=== PATIENT | male | born 1955 | race Caucasian/White ===

== ENCOUNTER 2024-03-28 18:48 | Emergency (ER) | payer OTHER, BC, SELFPAY ==
[2024-03-28] VITALS (10 sets, daily range): BP systolic 138–210; BP diastolic 81–100; PULSE 63; RESP 16; TEMP 36.5; O2SAT 96–99
--- NOTE | 2024-03-28 18:50 | ED.GENADULT ---
HPI - General Adult General Chief complaint: Unspecified Stated complaint: hypertension Time Seen by Provider: 03/28/24 18:50 Source: patient Mode of arrival: ambulatory Limitations: no limitations History of Present Illness HPI narrative: Patient is a 69-year-old male with hypertension. Patient was at the [facility] today and found to have elevated blood pressure without symptoms. Further he has been having elevated pressure at all his doctor appointments and they recently increased his losartan. He was sent to the hospital for further blood pressure control. Onset (ago): day(s) (1) Radiation: non-radiation Severity scale (1-10): 1 ( 0/10) Relieving factors: none Exacerbating factors: none Associated symptoms: denies other symptoms Treatments prior to arrival: none Related Data Home Medications Medication Instructions Recorded Confirmed Adult Aspirin EC Low Strength 81 mg PO DAILY 03/28/24 03/28/24 levothyroxine 50 mcg PO DAILY 03/28/24 03/28/24 losartan 75 mg PO DAILY 03/28/24 03/28/24 simvastatin 25 mg PO DAILY 03/28/24 03/28/24 Allergies Allergy/AdvReac Type Severity Reaction Status Date / Time No Known Allergies Allergy Verified 03/28/24 18:53 Review of Systems Review of Systems: All systems reviewed & are unremarkable except as noted in HPI and below Constitutional: Constitutional: Reports no additional constitutional complaints Eyes: Eyes: Reports no additional eye complaints ENT: Reports system reviewed and no additional complaints, except as documented Cardiovascular: Cardiovascular: Reports no additional cardiovascular complaints Respiratory: Respiratory: Reports no additional respiratory complaints Gastrointestinal: Gastrointestinal: Reports no additional gastrointestinal complaints Genitourinary: Genitourinary: Reports no additional male genitourinary complaints Musculoskeletal: Musculoskeletal: Reports no additional musculoskeletal complaints Integumentary/Breasts: Skin/Breast: Reports system reviewed and no additional complaints, except as docu Neurologic: Reports system reviewed and no additional complaints, except as documented Psychiatric: Psychiatric: Reports no additional psychiatric complaints Endocrine: Endocrine: Reports no additional endocrine complaints Hematologic/Lymphatic: Hematologic/Lymphatic: Reports no additional hematologic/lymphatic complaints Allergic/Immunologic: Allergic/Immunologic: Reports no additional allergic/immunologic complaints Exam Const: General: healthy appearing Nutritional Appearance: well nourished Orientation/consciousness: patient oriented x3 HENMT: Head: normal to inspection Ears: external ears normal Face/Nose/Sinus: Normal external nose present Eyes: Conjunctivae: conjunctivae normal Pupils: Equal, round and reactive pupils present EOM: EOMs intact bilaterally Neck: Neck: normal visual inspection Chest: Chest palpation & inspection: normal inspection of the chest Resp: Effort & Inspection: normal respiratory effort and not labored Auscultation: clear to auscultation bilaterally Cardio: Rate: regular rate Rhythm: regular rhythm Heart sounds: no murmurs GI: Inspection: non-distended GI Palp: Yes Soft to palpation and No Tenderness to palpation present (GI) Auscultation: normal bowel sounds : General: Yes bladder normal to palpation Back/Spine/Pelvis: Back: no CVA tenderness Skin: General skin exam: normal color Rashes: no rashes Wounds: no wounds Neuro: General: patient oriented x3 Cranial nerves: Yes Nystagmus not present Speech: normal speech Extrem: General: normal to inspection Psych: Mental Status: mental status grossly normal Affect: normal affect Attitude: cooperative Course Vital Signs Vital signs: Vital Signs Temperature 36.5 C 03/28/24 18:50 Pulse Rate 63 03/28/24 18:50 Respiratory Rate 16 03/28/24 18:50 Blood Pressure 210/100 H 03/28/24 18:50 Pulse Oximetry 99 03/28
--- NOTE | 2024-03-28 18:57 | ECG_ITS ---
SEE SCANNED COPY FOR CONFIRMED REPORT MTDD
[2024-03-28] MEDS: cloNIDine HCL 0.1 MG TABLET PO (19:10)
[2024-03-28 19:25] LABS: Basophils Absolute Auto 0.03 K/mm3 (0.00-0.10); Basophils Percent Auto 0.6 % (0.0-1.0); Eosinophils Absolute Auto 0.07 K/mm3 (0.02-0.50); Eosinophils Percent Auto 1.3 % (1.0-6.0); Hematocrit 43.9 % (37.0-46.0); Hemoglobin 14.7 g/dL (12.4-15.3); Immature Granulocyte Absolute 0.02 K/mm3 (0.00-0.00); Immature Granulocyte Percent A 0.4 % (0.0-0.0); Lymphocytes Absolute Auto 1.78 K/mm3 (1.10-4.50); Lymphocytes Percent Auto 32.7 % (18.0-42.0); Mean Corpuscular HGB Conc 33.5 g/dL (32-36); Mean Corpuscular Hemoglobin 31.9 pg (27.0-31.0); Mean Corpuscular Volume 95.2 fL (78.0-102.0); Mean Platelet Volume 9.1 fl (8.7-11.0); Monocytes Absolute Auto 0.42 K/mm3 (0.10-0.90); Monocytes Percent Auto 7.7 % (2.0-11.0); Neutrophils Absolute Auto 3.12 K/mm3 (1.70-7.20); Neutrophils Percent Auto 57.3 % (50.0-70.0); Platelet Count Result 223 K/mm3 (150-420); Red Blood Count 4.61 M/mm3 (4.70-6.10); Red Cell Distribution Width 12.3 % (11.6-14.4); White Blood Count 5.4 K/mm3 (4.8-10.8)
[2024-03-28 19:42] LABS: Alanine Aminotransferase 40 U/L (16-63); Albumin Level 3.9 g/dL (3.4-5.0); Alkaline Phosphatase 60 U/L (46-116); Anion Gap 8 mmol/L (4-12); Aspartate Amino Transferase 29 U/L (15-37); Bilirubin,Total 0.3 mg/dL (0.00-1.00); Blood Urea Nitrogen 17 mg/dL (7-18); Calcium 9.2 mg/dL (8.5-10.1); Carbon Dioxide 30 mmol/L (21-32); Chloride 103 mmol/L (98-108); Estimated CRCL calculation 75 ml/min; Estimated Glomerular Filt Rate > 60; Glucose 110 mg/dL (70-99); Osmolality Calculated 294 mOsm/kg (285-295); Potassium 4.1 mmol/L (3.5-5.1); Sodium 141 mmol/L (136-145); Troponin I 5.7 ng/L (0.00-60.4)
--- NOTE | 2024-03-28 20:04 | ED.GENADULT ---
HPI - General Adult General Chief complaint: Unspecified Stated complaint: hypertension Time Seen by Provider: 03/28/24 18:50 Source: patient Mode of arrival: ambulatory Limitations: no limitations History of Present Illness HPI narrative: see prior chart; opened this chart accidentially Severity scale (1-10): 1 ( 0/10) Relieving factors: none Exacerbating factors: none Associated symptoms: denies other symptoms Treatments prior to arrival: none Related Data Home Medications Medication Instructions Recorded Confirmed Adult Aspirin EC Low Strength 81 mg PO DAILY 03/28/24 03/28/24 levothyroxine 50 mcg PO DAILY 03/28/24 03/28/24 losartan 75 mg PO DAILY 03/28/24 03/28/24 simvastatin 25 mg PO DAILY 03/28/24 03/28/24 Allergies Allergy/AdvReac Type Severity Reaction Status Date / Time No Known Allergies Allergy Verified 03/28/24 18:53 Course Vital Signs Vital signs: Vital Signs Temperature 36.5 C 03/28/24 18:50 Pulse Rate 63 03/28/24 18:50 Respiratory Rate 16 03/28/24 18:50 Blood Pressure 210/100 H 03/28/24 18:50 Pulse Oximetry 99 03/28/24 18:50 Oxygen Delivery Room Air 03/28/24 18:50 Temperature 36.5 C 03/28/24 18:50 Pulse Rate 63 03/28/24 18:50 Respiratory Rate 16 03/28/24 18:59 Blood Pressure 138/81 03/28/24 19:55 Pulse Oximetry 97 03/28/24 19:55 Oxygen Delivery Room Air 03/28/24 18:50 Medical Decision Making Vital Signs Vital Signs: Vital Signs Temperature 36.5 C 03/28/24 18:50 Pulse Rate 63 03/28/24 18:50 Respiratory Rate 16 03/28/24 18:50 Blood Pressure 210/100 H 03/28/24 18:50 Pulse Oximetry 99 03/28/24 18:50 Oxygen Delivery Room Air 03/28/24 18:50 Temperature 36.5 C 03/28/24 18:50 Pulse Rate 63 03/28/24 18:50 Respiratory Rate 16 03/28/24 18:59 Blood Pressure 138/81 03/28/24 19:55 Pulse Oximetry 97 03/28/24 19:55 Oxygen Delivery Room Air 03/28/24 18:50 Lab Data 03/28/24 19:22 03/28/24 19:22 Labs: Lab Results 03/28/24 Range/Units 19:22 WBC 5.4 (4.8-10.8) K/mm3 RBC 4.61 L (4.70-6.10) M/mm3 Hgb 14.7 (12.4-15.3) g/dL Hct 43.9 (37.0-46.0) % MCV 95.2 (78.0-102.0) fL MCH 31.9 H (27.0-31.0) pg MCHC 33.5 (32-36) g/dL RDW 12.3 (11.6-14.4) % Plt Count 223 (150-420) K/mm3 MPV 9.1 (8.7-11.0) fl Immature Gran % (Auto) 0.4 H (0.0-0.0) % Neut % (Auto) 57.3 (50.0-70.0) % Lymph % (Auto) 32.7 (18.0-42.0) % [place] % (Auto) 7.7 (2.0-11.0) % Eos % (Auto) 1.3 (1.0-6.0) % Baso % (Auto) 0.6 (0.0-1.0) % Lymph # (Auto) 1.78 (1.10-4.50) K/mm3 [place] # (Auto) 0.42 (0.10-0.90) K/mm3 Eos # (Auto) 0.07 (0.02-0.50) K/mm3 Baso # (Auto) 0.03 (0.00-0.10) K/mm3 Abs Immat Gran (auto) 0.02 H (0.00-0.00) K/mm3 Absolute Neuts (auto) 3.12 (1.70-7.20) K/mm3 Absolute Nucleated RBC 0.00 (0.00-0.00) K/mm3 Nucleated RBC % 0.0 (0-0.0) % Sodium 141 (136-145) mmol/L Potassium 4.1 (3.5-5.1) mmol/L Chloride 103 (98-108) mmol/L Carbon Dioxide 30 (21-32) mmol/L Anion Gap 8 (4-12) mmol/L BUN 17 (7-18) mg/dL Creatinine 0.97 (0.70-1.30) mg/dL Estim Creat Clear Calc 75 ml/min Estimated GFR > 60 (59 - ) Glucose 110 H (70-99) mg/dL Calculated Osmolality 294 (285-295) mOsm/kg Calcium 9.2 (8.5-10.1) mg/dL Total Bilirubin 0.3 (0.00-1.00) mg/dL AST 29 (15-37) U/L ALT 40 (16-63) U/L Alkaline Phosphatase 60 (46-116) U/L Troponin I 5.7 (0.00-60.4) ng/L Total Protein 7.0 (6.4-8.2) g/dL Albumin 3.9 (3.4-5.0) g/dL Discharge Plan Discharge Clinical Impression: Hypertension, uncontrolled Patient Disposition: Home, Self-Care Condition: Stable Instructions: Chronic Hypertension (DC) Prescriptions: New amlodipine [Norvasc] 5 mg tablet 5 mg PO DAILY Qty: 30 0RF No Action Adult Aspirin EC Low Strength 81 mg PO DAILY levothyroxine 50 mcg PO DAILY jarret
== END 2024-03-28 20:29 | disposition home or self-care (01) ==
PROVIDERS: Emergency Provider Emergency Medicine; PCP Family Medicine
DX: I10 Essential (primary) hypertension (principal); Z79.82 Long term (current) use of aspirin
CPT/HCPCS: 36415; 80053; 84484; 85025; 93005; 99284; A9270